=== PATIENT | female | born 1990 | race Caucasian/White ===

== ENCOUNTER 2019-11-19 16:56 | Emergency (ER) | payer OTHER ==
[~2019-11-19] VITALS: Ht 172.7 cm; Wt 88.5 kg
[~2019-11-19 16:56] MED LIST: BACTRIM DS TAB1 EACH PO; CIPROFLOXACIN500 M1 PO; KEFLEX250 MG PO; LANOLIN56 GM; LORTAB 5 MG/5001 TAB PO; MEDROL DOSPAK21 TA1 PO; MIRENA; NAPROSYN500 MG PO; NOHOMEMEDICATIONS; PHENERGAN 25 MG25 M1 PO; PRENATAL; PRENATAL PO; PYRIDIUM200 MG PO; TUCKS MEDICATE1 EAC1
[2019-11-19] MEDS ORDERED: KEFLEX500 M1 PO (18:15)
[2019-11-19 18:43] VITALS: BP 140/64
== END 2019-11-19 18:45 | disposition home or self-care (01) ==
LOC: M.ERS 16:56
DX: S61.213A Laceration without foreign body of left middle finger without damage to nail, initial encounter (principal); Z90.49 Acquired absence of other specified parts of digestive tract; W25.XXXA Contact with sharp glass, initial encounter; Y93.89 Activity, other specified; Y92.89 Other specified places as the place of occurrence of the external cause; Y99.8 Other external cause status

== ENCOUNTER 2020-01-29 15:56 | Emergency (ER) | payer OTHER ==
[~2020-01-29] VITALS: Ht 170.2 cm; Wt 90.7 kg
[~2020-01-29 15:56] MED LIST changes: +KEFLEX500 M1 PO
[2020-01-29 16:22] VITALS: BP 144/65
[2020-01-29] MEDS ORDERED: BACTRIM DS TAB1 EACH PO (16:53)
[2020-01-29] MEDS ORDERED: HYDROCORTISONE3011 TP (16:53)
[2020-01-29] MEDS ORDERED: MEDROLDOSEPACK PO (16:53)
== END 2020-01-29 17:21 | disposition home or self-care (01) ==
LOC: M.ERS 15:56
DX: L23.7 Allergic contact dermatitis due to plants, except food (principal); F12.10 Cannabis abuse, uncomplicated; Z79.899 Other long term (current) drug therapy

== ENCOUNTER 2021-05-09 15:50 | Emergency (ER) | payer OTHER ==
[~2021-05-09] VITALS: Ht 172.7 cm; Wt 90.7 kg
[~2021-05-09 15:50] MED LIST changes: +HYDROCORTISONE3011 TP; +MEDROLDOSEPACK PO
[2021-05-09] MEDS ORDERED: IBUPROFEN 800800 M1 PO ×2 (17:04→17:06)
[2021-05-09 17:19] VITALS: BP 123/61
== END 2021-05-09 17:21 | disposition home or self-care (01) ==
LOC: M.ERS 15:50
DX: S60.211A Contusion of right wrist, initial encounter (principal); Z98.51 Tubal ligation status; W08.XXXA Fall from other furniture, initial encounter; Y93.89 Activity, other specified; Y92.89 Other specified places as the place of occurrence of the external cause; Y99.8 Other external cause status; Z90.89 Acquired absence of other organs